=== PATIENT | male | born 1970 | race Caucasian/White ===

== ENCOUNTER 2022-04-02 22:43 | Emergency (ER) | payer OTHER ==
[2022-04-03 00:38] LABS: SARS-COV-2 RT PCR NEGATIVE (NEGATIVE)
--- NOTE | 2022-04-03 00:48 | EDPHYS ---
Physician Documentation [facility] Name: Cary Cristina Age: 51 yrs Sex: Male : 1970 Arrival Date: 04/02/2022 Time: 22:45 Bed 12 Private MD: ED Physician Salvador Condon HPI: 04/02 23:34 This 51 yrs old Male presents to ER via Ambulatory with complaints of High Blood kb Pressure. 23:34 The patient or guardian reports cough, flu symptoms, low-grade fever. Onset: The kb symptoms/episode began/occurred 3 day(s) ago. Severity of symptoms: At their worst the symptoms were moderate, in the emergency department the symptoms are unchanged. Modifying factors: The symptoms are alleviated by nothing, the symptoms are aggravated by nothing. Associated signs and symptoms: Pertinent positives: fever. The patient has not experienced similar symptoms in the past. The patient has not recently seen a physician. Pt reports cough, congestion, fever for a few days, today had high blood pressure. . Historical: - Allergies: 22:53 No Known Allergies; kd3 - Immunization history:: Adult Immunizations up to date. - Social history:: Smoking status: unknown. ROS: 23:34 Abdomen/GI: Negative for abdominal pain, nausea, vomiting, diarrhea, and constipation. kb 23:34 Constitutional: Positive for fever. 23:34 ENT: Positive for rhinorrhea, sinus congestion. 23:34 Respiratory: Positive for cough. 23:34 All other systems are negative. Exam: 23:34 Constitutional: This is a well developed, well nourished patient who is awake, alert, kb and in no acute distress. Head/Face: Normocephalic, atraumatic. ENT: Moist Mucous membranes Cardiovascular: Regular rate and rhythm with a normal S1 and S2. No gallops, murmurs, or rubs. No pulse deficits. Respiratory: Respirations even and unlabored. No increased work of breathing. Talking in full sentences Abdomen/GI: Soft, non-tender. No distention Skin: Warm, dry with normal turgor. Normal color. MS/ Extremity: Pulses equal, no cyanosis. Neurovascular intact. Full, normal range of motion. Neuro: Awake and alert, GCS 15, oriented to person, place, time, and situation. Moves all extremities. Normal gait. Vital Signs: 22:50 BP 143 / 95; Pulse 118; Resp 16; Temp 98.6(O); Pulse Ox 98% on R/A; Weight 104.33 kg; kd3 Height 5 ft. 11 in. (180.34 cm); 04/03 00:57 BP 132 / 88; Pulse 87; Resp 17 S; Pulse Ox 99% on R/A; lg3 04/02 22:50 Body Mass Index 32.08 (104.33 kg, 180.34 cm) kd3 MDM: 04/02 22:50 Patient medically screened. kb 23:34 Data reviewed: vital signs, nurses notes. kb 23:34 Differential Diagnosis: Bronchitis Influenza Upper Respiratory Infection Pneumonia. kb 04/03 00:32 Scoring Tools PERC Rule for PE Age >/= 50 No HR >/= 100 Yes O2 Sat Room Air < 95% No kb Unilateral leg swelling No Hemoptysis No Recent surgery or trauma </= 4 wks ago requiring treatment with general anesthesia No (0 pt) Prior PE or DVT No Hormone use (Oral contraceptives, hormone replacement or estrogenic hormones use in males or female patients No. 00:41 I considered the following discharge prescriptions or medication management in the emergency department Antibiotics: At this time antibiotics are not recommended. Historians other than the Patient: Spouse/Significant Other: . Counseling: I had a detailed discussion with the patient and/or guardian regarding: the historical points, exam findings, and any diagnostic results supporting the discharge/admit diagnosis, lab results, radiology results, the need for outpatient follow up, a family practitioner, to return to the emergency department if symptoms worsen or persist or if there are any questions or concerns that arise at home. 00:48 Special discussion: I have referred the patient to see his PCP for further evaluation kb of high blood pressure. 04/02 22:54 Order name: COVID-19/FLU A+B; Complete Time: 00:41 kb 04/02 22:54 Order name: Chest Single View XRAY 04/02 22:57 Order name: EKG; Complete Time: 22:57 kb 04/02 22:57 Order name: EKG - Nurse/Tech; Complete Time: 23:36 kb Administered Medications: No medications were administered Disposition: 03:27 I reviewed the patient's care provided by the Advanced Practice Provider and agree with bs3 the diagnosis and treatment plan. Disposition Summary: 04/03/22 00:48 Discharge Ordered Location: Home kb Condition: Stable kb Diagnosis - Essential (primary) hypertension kb - Acute upper respiratory infection, unspecified kb Followup: kb - With: Emergency Department - When: As needed - Reason: Worsening of condition Followup: kb - With: Private Physician - When: 2 - 3 days - Reason: Recheck today's complaints, Continuance of care, Re-evaluation by your physician Discharge Instructions: - Discharge Summary Sheet kb - Upper Respiratory Infection, Adult, [id number] kb - Hypertension, Adult, [id number] kb - Viral Respiratory Infection, [id number] kb Forms: - Medication Reconciliation Form kb - Thank You Letter kb - Antibiotic Education kb - Prescription Opioid Use kb Signatures: Dispatcher [employer] Crystal Metz FNP-C FNP-Milena Ramey, RN RN kd3 Salvador Condon MD MD bs3
--- NOTE | 2022-04-03 00:48 | ER ---
Nurse's Notes [facility] Name: Cary Cristina Age: 51 yrs Sex: Male : 1970 Arrival Date: 04/02/2022 Time: 22:45 Bed 12 Private MD: Diagnosis: Essential (primary) hypertension;Acute upper respiratory infection, unspecified Presentation: 04/02 22:51 Chief complaint: Patient states: I have been having cough congestion and fever and kd3 recently my blood pressure has been high. Coronavirus screen: Vaccine status: Patient reports being unvaccinated. Ebola Screen: No symptoms or risks identified at this time. Initial Sepsis Screen: Does the patient meet any 2 criteria? No. Patient's initial sepsis screen is negative. Does the patient have a suspected source of infection? No. Patient's initial sepsis screen is negative. Risk Assessment: Do you want to hurt yourself or someone else? Patient reports no desire to harm self or others. Onset of symptoms was April 02, 2022. 22:51 Method Of Arrival: Ambulatory kd3 22:51 Acuity: MIESHA 3 kd3 Triage Assessment: 22:51 General: Appears in no apparent distress. Behavior is calm, cooperative. Pain: Denies kd3 pain. Neuro: Level of Consciousness is awake, alert, obeys commands, Oriented to person, place, time, situation. Respiratory: Airway is patent Trachea midline Respiratory effort is even, unlabored, Respiratory pattern is regular, symmetrical. Historical: - Allergies: 22:53 No Known Allergies; kd3 - Immunization history:: Adult Immunizations up to date. - Social history:: Smoking status: unknown. Screenin:39 [facility] ED Fall Risk Assessment (Adult) History of falling in the last 3 months, lg3 including since admission No falls in past 3 months (0 pts). Abuse screen: Denies threats or abuse. Denies injuries from another. Nutritional screening: No deficits noted. Tuberculosis screening: No symptoms or risk factors identified. Assessment: 23:39 General: Appears in no apparent distress. comfortable, Behavior is calm, cooperative. lg3 Pain: Denies pain. Neuro: No deficits noted. Millan Agitation-Sedation Scale (RASS): 0 - Alert and Calm Level of Consciousness is awake, alert, obeys commands, Oriented to person, place, time, situation. Cardiovascular: No deficits noted. Denies chest pain, Capillary refill < 3 seconds Clubbing of nail beds is absent JVD is absent Patient's skin is warm and dry. Respiratory: No deficits noted. Reports cough that is Airway is patent Trachea midline Respiratory effort is even, unlabored, Respiratory pattern is regular, symmetrical. GI: No deficits noted. No signs and/or symptoms were reported involving the gastrointestinal system. : No deficits noted. No signs and/or symptoms were reported regarding the genitourinary system. EENT: No deficits noted. No signs and/or symptoms were reported regarding the EENT system. Derm: No deficits noted. No signs and/or symptoms reported regarding the dermatologic system. Skin is intact, is healthy with good turgor, Skin is dry, Skin is normal. Musculoskeletal: No deficits noted. No signs and/or symptoms reported regarding the musculoskeletal system. Circulation, motion, and sensation intact. Range of motion: intact in all extremities. 04/03 00:56 Reassessment: Patient appears in no apparent distress at this time. No changes from lg3 previously documented assessment. Patient and/or family updated on plan of care and expected duration. Pain level reassessed. Patient is alert, oriented x 3, equal unlabored respirations, skin warm/dry/pink. Patient states feeling better. Vital Signs: 04/02 22:50 BP 143 / 95; Pulse 118; Resp 16; Temp 98.6(O); Pulse Ox 98% on R/A; Weight 104.33 kg; kd3 Height 5 ft. 11 in. (180.34 cm); 04/03 00:57 BP 132 / 88; Pulse 87; Resp 17 S; Pulse Ox 99% on R/A; lg3 04/02 22:50 Body Mass Index 32.08 (104.33 kg, 180.34 cm) kd3 ED Course: 04/02 22:45 Patient arrived in ED. ja2 22:50 [facility] Baird [facility]C [facility] kb 22:50 Salvador Condon MD is Attending Physician. kb 22:52 Triage completed. kd3 22:53 Arm band placed on right wrist. kd3 23:28 Chest Single View XRAY In Process Unspecified. EDMS 23:39 Patient has correct armband on for positive identification. Placed in gown. Bed in low lg3 position. Call light in reach. Side rails up X 1. Client placed on continuous cardiac and pulse oximetry monitoring. NIBP monitoring applied. tube building machine operator on. Door closed. Noise minimized. Warm blanket given. Family accompanied patient. 23:58 COVID-19/FLU A+B Sent. kd3 04/03 00:57 No provider procedures requiring assistance completed. Patient did not have IV access lg3 during this emergency room visit. Administered Medications: No medications were administered Medication: 04/02 23:39 VIS not applicable for this client. lg3 Outcome: 04/03 00:48 Discharge ordered by . rj 00:57 Discharged to home ambulatory. lg3 00:57 Condition: stable 00:57 Discharge instructions given to patient, Instructed on discharge instructions, follow up and referral plans. Demonstrated understanding of instructions, follow-up care. 00:59 Patient left the ED. lg3 Signatures: Dispatcher [employer] EDCrystal Ramos, Ericka Partida RN RN lg3 Analisa Patel Kyli RN RN kd3
[2022-04-03 02:00] VITALS: BP 132/88; TEMP 98.6; O2SAT 99
--- NOTE | 2022-04-03 13:34 | RAD REPORT ---
EXAM DESCRIPTION: Chest Single View CLINICAL HISTORY: COUGH. 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 COMPARISON: None. FINDINGS: Single frontal radiograph view of the chest. Cardiomediastinal silhouette: Dextrocardia and right aortic arch. Heart is not enlarged. Lungs: No consolidation, pneumothorax, or pleural effusion. Bones: No acute osseous abnormality. Upper abdomen: No abnormality identified. IMPRESSION: 1. No acute pulmonary process identified. 2. Dextrocardia with right aortic arch. Compatible history of situs inversus. Electronically signed by: Lne Horton 04/02/2022 11:50 PM FIREWORKS ASSEMBLER Due to temporary technical issues with the PACS/Fluency reporting system, reports are being signed by the in house radiologists without review as a courtesy to insure prompt reporting. The interpreting radiologist is fully responsible for the content of the report.
--- NOTE | 2022-04-04 13:20 | EKG ---
Test Date: 2022-04-02 Test Time: 23:36:39 Signal Maintainer: MB MEASUREMENT RESULTS: Intervals: Rate: 95 AK: 148 QRSD: 90 QT: 328 QTc: 412 [place]: P: 52 AK: 148 QRS: 22 T: 55 INTERPRETIVE STATEMENTS: Normal sinus rhythm Inferior infarct, age undetermined Anterolateral infarct, age undetermined Abnormal ECG Compared to ECG 04/02/2022 23:35:30 No significant changes Electronically Signed On 04-04-22 13:16:22 OUTBOARD MOTORBOAT OPERATOR by Oleg Osorio
--- NOTE | 2022-04-04 13:20 | EKG ---
Test Date: 2022-04-02 Test Time: 23:35:30 [employer] Host: MADHURI MEASUREMENT RESULTS: Intervals: Rate: 92 MN: 144 QRSD: 94 QT: 328 QTc: 405 [place]: P: 112 MN: 144 QRS: 148 T: 111 INTERPRETIVE STATEMENTS: Suspect arm lead reversal, interpretation assumes no reversal Normal sinus rhythm Inferior infarct, age undetermined Anterolateral infarct, age undetermined Abnormal ECG No previous ECG available for comparison Electronically Signed On 04-04-22 13:16:26 CLOTH BIN PACKER by Oleg Osorio
== END 2022-04-03 00:59 | disposition home or self-care (01) ==
LOC: ER 22:43
DX: J06.9 Acute upper respiratory infection, unspecified (principal); I10 Essential (primary) hypertension; Z20.822 Contact with and (suspected) exposure to COVID-19
CPT/HCPCS: 93005 ×2; 0240U; 71045; 99284